=== PATIENT | female | born 1960 | race Caucasian/White ===

== ENCOUNTER → 2016-08-11 | Day surgery (SDC) | payer MEDICARE, OTHER ==
[2016-08-11 07:56] LABS: HGB 14.4 g/dl (12.5-16.0); MCH 30.9 pg (25.0-31.0); MCHC 33.5 g/dL (32.0-36.0); MCV 92.3 fL (78.0-100.0); MPV 12.8 fL (6.0-9.5); RBC 4.66 M/uL (4.20-5.40); RDW 13.2 % (11.5-14.0); WBC 6.6 K/uL (4.0-10.5)
[2016-08-11 08:06] LABS: ALBUMIN 4.8 g/dL (3.5-5.0); BILIRUBIN - TOTAL 0.7 mg/dL (0.1-1.0); CREATININE 0.7 mg/dL (0.5-1.0); GLOBULIN (CALCULATION) 2.8 g/dL (2.2-4.2); POTASSIUM 3.9 mmol/L (3.5-5.1); TOTAL PROTEIN 7.6 g/dL (6.4-8.3)
== END | disposition home or self-care (01) ==
LOC: FAS 07:18
PROVIDERS: Surgery
DX: Z12.11 Encounter for screening for malignant neoplasm of colon (principal); D12.6 Benign neoplasm of colon, unspecified; E78.5 Hyperlipidemia, unspecified; E04.9 Nontoxic goiter, unspecified; J06.9 Acute upper respiratory infection, unspecified; F32.9 Major depressive disorder, single episode, unspecified; N13.30 Unspecified hydronephrosis; H61.20 Impacted cerumen, unspecified ear; Z98.51 Tubal ligation status; Z87.891 Personal history of nicotine dependence; Z83.3 Family history of diabetes mellitus; Z81.1 Family history of alcohol abuse and dependence; Z82.61 Family history of arthritis; Z83.49 Family history of other endocrine, nutritional and metabolic diseases; Z82.49 Family history of ischemic heart disease and other diseases of the circulatory system; Z82.62 Family history of osteoporosis; Z81.8 Family history of other mental and behavioral disorders; Z82.3 Family history of stroke; Z84.89 Family history of other specified conditions; Z83.0 Family history of human immunodeficiency virus [HIV] disease; Z80.8 Family history of malignant neoplasm of other organs or systems; Z79.899 Other long term (current) drug therapy
CPT/HCPCS: 36415; 80053; 88305; J2704

== ENCOUNTER 2016-11-09 14:45 | Emergency (ER) | payer MEDICARE, OTHER | END 2016-11-09 17:10 | disposition home or self-care (01) | LOC: FER 14:45 | DX: S20.211A Contusion of right front wall of thorax, initial encounter (principal); W01.0XXA Fall on same level from slipping, tripping and stumbling without subsequent striking against object, initial encounter; Y92.9 Unspecified place or not applicable; Y99.0 Civilian activity done for income or pay; F32.9 Major depressive disorder, single episode, unspecified; F41.9 Anxiety disorder, unspecified | CPT/HCPCS: 71101; 99283 ==

== ENCOUNTER 2020-08-26 05:38 | Day surgery (SDC) | payer MEDICARE, OTHER ==
[~2020-08-26 05:38] MED LIST: ATORVASTATIN CA20 MG PO; SERTRALINE HCL50 MG PO; VITAMIN D310 MC1 PO
[2020-08-26] MEDS ORDERED: PLAVIX75 MG PO (07:26)
[2020-08-26] MEDS ORDERED: PERCOCET 5-3251 EACH PO (07:29)
[2020-08-26] MEDS ORDERED: ZOLOFT50 MG PO (11:14)
[2020-08-27 06:06] LABS: BASOPHIL 0.3 % (0-2); EOSINOPHIL 0.3 % (0-5); HCT 31.8 % (37.0-47.0); HGB 10.3 g/dl (12.5-16.0); MCH 31.1 pg (25.0-31.0); MCHC 32.4 g/dL (32.0-36.0); MCV 96.1 fL (78.0-100.0); MONOCYTE 10.6 % (0-12); MPV 12.6 fL (6.0-9.5); NEUTROPHIL 74.3 % (41-80); NRBC 0; PLT 146 K/uL (150-400); RBC 3.31 M/uL (4.20-5.40); RDW 13.3 % (11.5-14.0); WBC 10.3 K/uL (4.0-10.5)
[2020-08-27 06:35] LABS: CREATININE 0.6 mg/dL (0.51-0.95); POTASSIUM 4.1 mmol/L (3.5-5.1)
[2020-08-27] MEDS ORDERED: FEOSOL325 MG PO (08:16)
[2020-08-27] MEDS ORDERED: XARELTO10 MG PO (08:16)
[2020-08-27] MEDS ORDERED: ULTRA-LIGHT RO1 EACH XX (08:49)
[2020-08-27] MEDS ORDERED: 3IN1 COMMODE XX (08:49)
[2020-08-27] MEDS ORDERED: ZOFRAN4 M1 PO (10:39)
== END 2020-08-27 13:18 | disposition home health service (06) ==
LOC: FAS 05:38 → FMS 09:12
PROVIDERS: Legal Medicine
DX: M17.11 Unilateral primary osteoarthritis, right knee (principal); M25.461 Effusion, right knee; M71.21 Synovial cyst of popliteal space [Baker], right knee; E78.5 Hyperlipidemia, unspecified; F32.9 Major depressive disorder, single episode, unspecified; Z79.899 Other long term (current) drug therapy; Z82.49 Family history of ischemic heart disease and other diseases of the circulatory system; Z20.822 Contact with and (suspected) exposure to COVID-19; Z98.890 Other specified postprocedural states
CPT/HCPCS: 36415; 73560; 80048; 85025; 86850; 86900; 86901; 94010; 94762; 97110; 97116; 97162; 97166; 97530-GP; 97535; C1713; C1776; J0171; J0697; J0735; J1170; J1885; J2250; J2270; J2405; J2704; J2795; J3010; J7120